=== PATIENT | male | born 1940 | race Caucasian/White ===

== ENCOUNTER 2023-11-29 00:13 | Emergency (ER) | payer MEDICARE, OTHER, SELFPAY ==
[2023-11-29] VITALS (25 sets, daily range): BP systolic 127–198; BP diastolic 68–106; PULSE 60–81; RESP 16; TEMP 36.6–36.7; O2SAT 93–100
--- NOTE | 2023-11-29 | DI.RAD_ITS ---
Exam(s) XR FEMUR LT EXAM: XR FEMUR LT CLINICAL HISTORY: possible left hip dislocation. TECHNIQUE: 2D digital imaging was performed. COMPARISON: No exams were available for comparison FINDINGS: 4 views There is a left hip arthroplasty posterior dislocation of the femoral component relative to the aceta bular component. No obvious fracture. There is an ipsilateral left knee arthroplasty with no dislocation or fracture and no evidence of obv ious loosening.. IMPRESSION: Dislocated left hip arthroplasty with femoral component dislocated posterior-superior relative to the acetabular cup. Unremarkable appearance of the left knee arthroplasty. DATA REPOSITORY: RADIATION DOSE DELIVERED:
--- NOTE | 2023-11-29 00:11 | DI.RAD_ITS ---
Exam(s) XR PELVIS AP EXAM: XR PELVIS AP CLINICAL HISTORY: possible left hip dislocation. TECHNIQUE: 2D digital imaging was performed. COMPARISON: CR,XR XR FEMUR LT from 11/29/2023 FINDINGS: Two views. There are bilateral hip prostheses. There is dislocation of the left hip prosthesis components. The femoral head prosthesis component is dislocated postero- superior relative to the acetabular cup component. IMPRESSION: Posterosuperior dislocation of the left hip prosthesis. No obvious fractures. Visualized right hip prosthesis appears intact. DATA REPOSITORY: RADIATION DOSE DELIVERED:
--- NOTE | 2023-11-29 00:15 | RT.EKG_ITS ---
APPROVED REPORT Exam: Resting ECG Reason for Exam: possible OR Patient Location: E HR:71 bpm ECG Measurements Heart Rate 71 AXIS NM 226 P -86 QRSd 179 QRS -81 QT 471 T 93 QTc 511 Conclusion Ventricular-paced rhythm
[2023-11-29 00:28] LABS: Abs Immature Grans 0.01 10^3/uL (0.0-0.06); Absolute Basophil Count 0.04 10^3/uL (0.0-0.2); Absolute Lymphocyte Count 0.98 10^3/uL (1.2-3.4); Absolute Monocyte Count 0.46 10^3/uL (0.1-0.8); Absolute Neutrophil Count 2.53 10^3/uL (1.2-6.7); Eosinophils % 2.4; HCT 46.2 % (40.0-50.0); HGB 16.2 g/dL (13.5-17.5); Immature Grans % 0.2; Lymphocytes % 23.8; MCH 32.5 pg (27.0-33.0); MCHC 35.1 % (32.0-36.0); MCV 93 fL (80-95); MPV 9.4 fL (8.0-11.0); Monocytes % 11.2; Neutrophils % 61.4; Platelet Count 202 10^3/uL (130-400); RBC 4.98 10^6/uL (4.36-5.78); WBC 4.12 10^3/uL (4.4-10.8)
[2023-11-29] MEDS: Ondansetron 4 MG/2 ML VIAL IVP (00:30)
[2023-11-29] MEDS: MORPHine 4 MG/ML SYR IVP ×2 (00:30→04:26)
[2023-11-29 00:43] LABS: ALT 28 U/L (16-63); AST 33 U/L (15-37); Albumin 3.9 g/dL (3.4-5.0); Alkaline Phosphatase 141 U/L (46-116); Anion Gap 6.5 mmol/L (3-11); BUN 17 mg/dL (7-18); Bilirubin, Total 0.8 mg/dL (0.2-1.0); CO2 30.5 mmol/L (21.0-32.0); CREATININE 0.9 mg/dL (0.70-1.30); Calcium 9.2 mg/dL (8.5-10.1); Chloride 102 mmol/L (98-107); Glucose 133 mg/dL (74-106); Potassium 4.2 mmol/L (3.5-5.1); Sodium 139 mmol/L (136-145); Total Protein 7.4 g/dL (6.4-8.2)
[2023-11-29 00:48] LABS: INR 1.1 (0.9-1.1); PTT Activated 26.6 sec (23.6-32.8); Prothrombin Time 10.7 sec (9.1-11.1)
[2023-11-29] MEDS: Normal Saline 1,000 ML 125 ML IV (00:49)
--- NOTE | 2023-11-29 01:00 | W.ED.GENAD ---
Discharge Plan Discharge Details Chief Complaint: Orthopedic Primary Care Provider: Maddison,Local ED Provider: Erendira Mcdowell Home Meds and New Rx's Prescriptions: No Action atorvastatin 40 mg tablet 40 mg PO QHS lisinopril 10 mg tablet 10 mg PO BID Eliquis 5 mg tablet 5 mg PO BID metformin 1,000 mg tablet 1,000 mg PO DAILY metformin 500 mg tablet 500 mg PO DAILY HPI General Mode of arrival: EMS. Date/Time Provider Initiated Documentation: 11/29/23 00:22. Limitations to Documentation: no limitations. HPI Narrative: 83yo M with pacemaker, HTN, DM, presenting for left hip dislocation. History from patient and EMS. Patient reports that he has a posterior left hip dislocation. Has bilateral hip replacements, left hip has dislocated twice in the past last around a year ago. The first time it was reduced after multiple attempts with propofol for sedation. The second time bedside reduction with orthopedics under propofol was unsuccessful despite multiple attempts and ultimately was taken to the OR. Today he was sitting on the edge of the bed and leaned forward and down, felt his hip pop out of place. No numbness or tingling in his left hip or leg. Pain in left hip, otherwise denies pain. Given 5mg morphine from EMS with good effect. He is otherwise in his usual state of health with no fevers, chills, rash, nausea, vomiting, abdominal pain, chest pain, shortness of breath, or other concerns. Related Data Home Medications Medication Instructions Recorded Confirmed apixaban 5 mg tablet (Eliquis) 5 mg PO BID 11/29/23 11/29/23 atorvastatin 40 mg tablet 40 mg PO QHS 11/29/23 11/29/23 lisinopril 10 mg tablet 10 mg PO BID 11/29/23 11/29/23 metformin 1,000 mg tablet 1,000 mg PO DAILY 11/29/23 11/29/23 metformin 500 mg tablet 500 mg PO DAILY 11/29/23 11/29/23 Allergies Allergy/AdvReac Type Severity Reaction Status Date / Time No Known Allergies Allergy Unverified 11/29/23 04:27 General Stated Complaint: Orthopedic DAVIE: 3 Review of Systems Narrative: see HPI Exam Narrative Exam Narrative: General: Alert, well appearing, well nourished, in no acute distress. Head: Normocephalic, atraumatic Neck: Trachea midline, ?Neck supple. Cardiac: ?RRR, no murmurs appreciated Resp: No respiratory distress. CTAB. Abd: ?Soft, non-distended, nontender Extremities: ?LLE shortened, internally rotated, and adducted. DP pulse intact. Sensation to light touch intact throughout LLE. Able to wiggle toes, movement at knee and hip limited 2/t pain. Neurologic: GCS 15. ? Moves all extremities freely against gravity Course Vital Signs Vital signs: Vital Signs Temperature 36.6 C 11/29/23 00:13 Pulse 72 11/29/23 00:13 Respiratory Rate 16 11/29/23 00:13 Blood Pressure 198/98 H 11/29/23 00:13 Pulse Oximetry 100 11/29/23 00:13 Temperature 36.6 C 11/29/23 00:13 Temperature Source Oral 11/29/23 00:13 Pulse 72 11/29/23 00:13 Respiratory Rate 16 11/29/23 00:13 Respiratory Effort Normal 11/29/23 00:16 Blood Pressure 198/98 H 11/29/23 00:13 Pulse Oximetry 100 11/29/23 00:13 Pain Level 3 11/29/23 00:13 Lab/Test Results Lab/Test Results: Laboratory Tests Range/Units 11/29/23 00:24 WBC (4.4-10.8) 10^3/uL 4.12 L RBC (4.36-5.78) 10^6/uL 4.98 Hgb (13.5-17.5) g/dL 16.2 Hct (40.0-50.0) % 46.2 MCV (80-95) fL 93 MCH (27.0-33.0) pg 32.5 MCHC (32.0-36.0) % 35.1 RDW (11.8-14.1) % 13.0 Plt Count (130-400) 10^3/uL 202 MPV (8.0-11.0) fL 9.4 Immature Gran % 0.2 Neutrophils % 61.4 Lymphocytes % 23.8 Monocytes % 11.2 Eosinophils % 2.4 Basophils % 1.0 Nucleated RBC % (0.0-0.3) % 0.0 Absolute Neutrophils (1.2-6.7) 10^3/uL 2.53 Absolute Lymphocytes (1.2-3.4) 10^3/uL 0.98 L Absolute Monocytes (0.1-0.8) 10^3/uL 0.46 Absolute Eosinophils (0.0-0.7) 10^3/uL 0.10 Absolute Basophils (0.0-0.2) 10^3/uL 0.04 PT (9.1-11.1) sec 10.7 INR (0.9-1.1) 1.1 APTT (23.6-32.8) sec 26.6 Sodium (136-145) mmol/L 139 Potassium (3.5-5.1) mmol/L 4.2 Chloride (98-107) mmol/L 102 Carbon Dioxide (21.0-32.0) mmol/L 30.5 Anion Gap (3-11) mmol/L 6.5 BUN (7-18) mg/dL 17 Creatinine (0.70-1.30) mg/dL 0.9 Est GFR (CKD-EPI 2020) (mL/min/1.73m2) 85.80 Glucose (74-106) mg/dL 133 H Calcium (8.5-10.1) mg/dL 9.2 Total Bilirubin (0.2-1.0) mg/dL 0.8 AST (15-37) U/L 33 ALT (16-63) U/L 28 Alkaline Phosphatase (46-116) U/L 141 H Total Protein (6.4-8.2) g/dL 7.4 Albumin (3.4-5.0) g/dL 3.9 Medical Decision Making 83yo M with pacemaker, HTN, DM, presenting for left hip dislocation. History from patient and EMS. Has bilateral hip replacements, left hip has dislocated twice in the past last around a year ago. The first time it was reduced after multiple attempts with propofol for sedation. The second time bedside reduction with orthopedics under propofol was unsuccessful despite multiple attempts and ultimately was taken to the OR. Today he was sitting on the edge of the bed and leaned forward and down, felt his hip pop out of place. Hypertensive on arrival, vital signs otherwise reassuring. On exam LLE shortened, internally rotated, and adducted. Neurovascular intact. Likely posterior hip dislocation, fracture less likely. Will get pre-sedation/pre-OP labs and EKG, plain films. -EKG V-paced. -Labs reviewed as below, CBC & CMP reassuring with no significant abnormalities, coags normal. -XR independently reviewed, left prosthetic hip posterior dislocation on my view, agree with radiology read below. Prosthetic hip and neurovascular intact; does need to be reduced urgently but not emergently. Will continue with IV morphine for pain. Discussed with orthopedics; plan to attempt bedside reduction under propofol this morning at 0715. Signed out to oncoming physican, plan as above. Imaging Data Radiologic Study: Imaging: X-Ray Radiologist's impression: IMPRESSION: Left hip arthroplasty with posterior femoral component dislocation relative the acetabular component. Total knee arthroplasty in good position. No acute fracture. IMPRESSION: Bilateral hip arthroplasties with posterior dislocation of the left femoral prosthesis relative to the acetabular component. No acute fracture. Lab Data Lab results reviewed: Yes I reviewed the patient's lab results. Labs: Laboratory Tests Range/Units 11/29/23 00:24 WBC (4.4-10.8) 10^3/uL 4.12 L RBC (4.36-5.78) 10^6/uL 4.98 Hgb (13.5-17.5) g/dL 16.2 Hct (40.0-50.0) % 46.2 MCV (80-95) fL 93 MCH (27.0-33.0) pg 32.5 MCHC (32.0-36.0) % 35.1 RDW (11.8-14.1) % 13.0 Plt Count (130-400) 10^3/uL 202 MPV (8.0-11.0) fL 9.4 Immature Gran % 0.2 Neutrophils % 61.4 Lymphocytes % 23.8 Monocytes % 11.2 Eosinophils % 2.4 Basophils % 1.0 Nucleated RBC % (0.0-0.3) % 0.0 Absolute Neutrophils (1.2-6.7) 10^3/uL 2.53 Absolute Lymphocytes (1.2-3.4) 10^3/uL 0.98 L Absolute Monocytes (0.1-0.8) 10^3/uL 0.46 Absolute Eosinophils (0.0-0.7) 10^3/uL 0.10 Absolute Basophils (0.0-0.2) 10^3/uL 0.04 PT (9.1-11.1) sec 10.7 INR (0.9-1.1) 1.1 APTT (23.6-32.8) sec 26.6 Sodium (136-145) mmol/L 139 Potassium (3.5-5.1) mmol/L 4.2 Chloride (98-107) mmol/L 102 Carbon Dioxide (21.0-32.0) mmol/L 30.5 Anion Gap (3-11) mmol/L 6.5 BUN (7-18) mg/dL 17 Creatinine (0.70-1.30) mg/dL 0.9 Est GFR (CKD-EPI 2020) (mL/min/1.73m2) 85.80 Glucose (74-106) mg/dL 133 H Calcium (8.5-10.1) mg/dL 9.2 Total Bilirubin (0.2-1.0) mg/dL 0.8 AST (15-37) U/L 33 ALT (16-63) U/L 28 Alkaline Phosphatase (46-116) U/L 141 H Total Protein (6.4-8.2) g/dL 7.4 Albumin (3.4-5.0) g/dL 3.9 Quality:[facility] Health Related Social Needs: No Data to Display [facility] Social History Smoking risk assessment performed?: No
--- NOTE | 2023-11-29 02:50 | DI.VRAD_ITS ---
PROCEDURE INFORMATION: Exam: XR Left Femur Exam date and time: 11/29/2023 12:48 AM Age: 83 years old Clinical indication: Left; Prior surgery; Surgery date: 6+ months; Surgery type: L hip pain, possible dislocation TECHNIQUE: Imaging protocol: Radiologic exam of the left femur. Views: 2 views. COMPARISON: CR XR PELVIS AP 11/29/2023 12:45 AM FINDINGS: Bones/joints: Left hip arthroplasty. No acute fracture. No loosening. There is a posterior dislocation of the femoral component relative to the acetabular component. Total knee replacement in good position. Normal knee alignment. No evidence of prosthesis loosening. No knee joint space collection. Soft tissues: Left inguinal herniorrhaphy. IMPRESSION: Left hip arthroplasty with posterior femoral component dislocation relative the acetabular component. Total knee arthroplasty in good position. No acute fracture. Dictated and Authenticated by: Erendira Hassan MD. Ordering:EDGARDO Krishna MD
--- NOTE | 2023-11-29 02:51 | DI.VRAD_ITS ---
PROCEDURE INFORMATION: Exam: XR Pelvis Exam date and time: 11/29/2023 12:45 AM Age: 83 years old Clinical indication: Left hip; Prior surgery; Surgery date: 6+ months; Surgery type: L hip pain, possible dislocation TECHNIQUE: Imaging protocol: Radiologic exam of the pelvis. Views: 1 or 2 view. COMPARISON: No relevant prior studies available. FINDINGS: Bones/joints: Bilateral hip arthroplasties. The left femoral prosthesis is posteriorly dislocated relative to the acetabular component. 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 No acute fracture. Soft tissues: Bilateral inguinal herniorrhaphies with mesh. IMPRESSION: Bilateral hip arthroplasties with posterior dislocation of the left femoral prosthesis relative to the acetabular component. No acute fracture. Dictated and Authenticated by: Erendira Hassan MD. Ordering:EDGARDO Krishna MD
[2023-11-29] MEDS: Propofol 200 MG/20 ML VIAL 100 MG IVP (07:51)
[2023-11-29] MEDS: Propofol 200 MG/20 ML VIAL 50 MG IVP (07:53)
--- NOTE | 2023-11-29 08:15 | DI.RAD_ITS ---
Exam(s) XR PELVIS AP EXAM: XR PELVIS AP CLINICAL HISTORY: post reduction. TECHNIQUE: 2D digital imaging was performed. COMPARISON: CR,XR XR PELVIS AP from 11/29/2023 FINDINGS: Single AP view There appears to be realignment of the components of the left hip prosthesis. No fractures evident. IMPRESSION: Successful realignment. DATA REPOSITORY: RADIATION DOSE DELIVERED:
--- NOTE | 2023-11-29 09:39 | W.EDPROG ---
Date of service: 11/29/23 Time of Service: 09:40 Medical Decision Making Care was signed out by Dr. Mcdowell, please see her documentation regarding initial ED presentation course. Plan at signout was to sedate for hip reduction by orthopedics. Patient was sedated successfully with propofol. He did have brief period of hypoventilation lasting 5 seconds and maintain appropriate oxygenation greater than 90% during this with jaw thrust and supplemental oxygen. Joint was subjectively reduced. Patient monitored until return to baseline mentation. Postreduction x-ray shows successful realignment. Abduction pillow was applied. Plan for discharge with outpatient follow-up with orthopedics. 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 Plan to attempt bedside reduction this am with ortho Last updated by Erendira Mcdowell MD at 11/29/23 07:36 Discharge Plan Disposition Patient Disposition: Home Condition: Stable Discharge Details Clinical Impression: Dislocation of hip, left, closed Primary Care Provider: Maddison,Local ED Provider: Keyshawn Perez Home Meds and New Rx's Prescriptions: Continued atorvastatin 40 mg tablet 40 mg PO QHS lisinopril 10 mg tablet 10 mg PO BID Eliquis 5 mg tablet 5 mg PO BID metformin 1,000 mg tablet 1,000 mg PO DAILY metformin 500 mg tablet 500 mg PO DAILY Discharge Instructions Instructions: Hip Dislocation (ED) Additional Instructions: Activity: You may ambulate as tolerated. However, he should avoid any hip flexion past 90 degrees, this is particular important when trying to get in and out of a chair or car. He also should avoid turning or twisting such that the kneecap point towards the midline, internally rotated. Additionally, you should always keep your knees wider than the hips encouraging a position of abduction. While resting, in particular when sleeping, he should wear the abduction pillow. Please contact your orthopedic surgeon to arrange follow-up. Return to the ER immediately for any worsening or new concerning symptoms. Referrals: Kulwinder Cuevas MD [ [facility] STAFF PHYSICIAN] - Discharge Data Discharge Date/Time-TO BE ENTERED AT DEPARTURE: 11/29/23 10:30
--- NOTE | 2023-11-29 12:32 | W.ORTHOCONSU ---
Date of service: 11/29/23 Time of Service: 07:30 History of Present Illness History of Present Illness Chief Complaint: Left Hip Dislocation Narrative: Stephane is an active 83-year-old male who presents today for his left hip. [place]. Earlier this evening he was leaning forward off the edge of the bed reaching for his feet when he felt something pop in the left hip. He noted immediately that he had a dislocation. He has had it dislocate 2 times before. He thinks initial surgery was in 2007. He is also status post right hip replacement and bilateral knee replacements, all performed in the [facility]. He denies any numbness or tingling. He reports difficulties with both previous reductions, 1 failing in the emergency department having go to the operating room. However, after both attempts he was treated without any surgical intervention. He does have an abduction pillow at home in the [place] area but not with him today. He did see an arthroplasty surgeon who recommended no revision until third strike. He does have this relationship established. No other trauma. 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 Unfortunately, I was very honest with Stephane that this needs a revision. Most likely there is going to be soft tissue losses around the left hip which have led to this instability although the left hip on the reduction x-ray does seem to be slightly short, compared to the contralateral side. Either way, reduction was performed today of the left hip. Given the history, I cautioned him on any hip flexion greater than 90 degrees or any internal rotation of the left hip or adduction of the left hip. A soft abduction pillow was provided for sleep and resting. I was very him to avoid hyperflexion and internal rotation of the hip when he gets in and out of a chair or uses the toilet. He should follow-up with his hip surgeon in [place] [facility]. 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 No acute distress. Alert and oriented x 3. Left lower extremity is notably shortened and externally rotated slightly flexed at the hip and at the knee. Mild edema is appreciated about the bilateral legs, similar both sides. He is able to actively extend and flex the left ankle as well as extend and flex the great toe. Results Last Vital Signs Temp 36.7 C 11/29/23 04:57 Pulse 62 11/29/23 08:31 Resp 16 11/29/23 04:57 BP 158/83 H 11/29/23 08:31 Pulse Ox 96 11/29/23 08:31 Labs 11/29/23 00:24 11/29/23 00:24 Labs: Laboratory Results - last 24 hr 11/29/23 00:24 WBC 4.12 L RBC 4.98 Hgb 16.2 Hct 46.2 MCV 93 MCH 32.5 MCHC 35.1 RDW 13.0 Plt Count 202 MPV 9.4 Immature Gran % 0.2 Neutrophils % 61.4 Lymphocytes % 23.8 Monocytes % 11.2 Eosinophils % 2.4 Basophils % 1.0 Nucleated RBC % 0.0 Absolute Neutrophils 2.53 Absolute Lymphocytes 0.98 L Absolute Monocytes 0.46 Absolute Eosinophils 0.10 Absolute Basophils 0.04 PT 10.7 INR 1.1 APTT 26.6 Sodium 139 Potassium 4.2 Chloride 102 Carbon Dioxide 30.5 Anion Gap 6.5 BUN 17 Creatinine 0.9 Est GFR (CKD-EPI 2020) 85.80 Glucose 133 H Calcium 9.2 Total Bilirubin 0.8 AST 33 ALT 28 Alkaline Phosphatase 141 H Total Protein 7.4 Albumin 3.9 Imaging Imaging Studies: X-rays of the left hip and pelvis demonstrates a superior?posterior dislocation of the left hip. No apparent fracture. There is a primary hip replaced without any signs of a constrained liner dual mobility articulation. No particular malpositioning appreciated or any signs of acute loosening. Procedures Orthopedic Joint Reduction Left prosthetic hip: Time out performed: Yes Side: left Joint reduction location: hip Analgesia: procedural sedation Technique used: traction/counter-traction and direct manipulation Additional comments: With adequate sedation in place, administered by Dr. Perez, the left hip was brought into internal rotation, hyperflexion adduction. Counterpressure was applied to the ipsilateral ASIS. I then performed distraction in this position. There was a palpable change in position and slow abduction, external rotation and extension was performed bring the leg back to a normal position. This was tested where 90 degrees of flexion, 20 degrees of internal rotation and 20 degrees of adduction was tolerated without recurrent dislocation. Follow-up x-ray was performed which also showed appropriate reduction of the left prosthetic hip.
== END 2023-11-29 10:30 | disposition home or self-care (01) ==
PROVIDERS: Student in an Organized Health Care Education/Training Program; Emergency Provider Student in an Organized Health Care Education/Training Program
DX: T84.021A Dislocation of internal left hip prosthesis, initial encounter (principal); I10 Essential (primary) hypertension; E11.9 Type 2 diabetes mellitus without complications; Z95.0 Presence of cardiac pacemaker; Z79.01 Long term (current) use of anticoagulants; Z79.84 Long term (current) use of oral hypoglycemic drugs; Z96.643 Presence of artificial hip joint, bilateral; Z96.652 Presence of left artificial knee joint
CPT/HCPCS: 00123; 27265; 73552; 80053; 93005; 96374; 96375; 99156; 99283; 99285; 72170; 85025; 85610; 85730; 93010; 99284; J2270; J2405; J2704